=== PATIENT | male | born 1985 | race Caucasian/White ===

== ENCOUNTER 2020-06-03 20:19 | Emergency (ER) | payer OTHER ==
[~2020-06-03] VITALS: Ht 175.3 cm; Wt 101.6 kg
[2020-06-03 20:30] VITALS: BP 109/66
--- NOTE | 2020-06-03 20:30 | NUR ---
TO [facility]
--- NOTE | 2020-06-03 21:00 | NUR ---
SEEN AND EXAMINED BY ÁNGEL WITH ORDERS, CARRIED OUT
--- NOTE | 2020-06-03 22:00 | NUR ---
RESULT BACK AND NOTED BY ERMD AND FOR D/C
[2020-06-03 22:25] VITALS: BP 109/66
--- NOTE | 2020-06-03 22:25 | NUR ---
Patient discharged with v/s stable. Written and verbal after care instructions given and explained. Patient alert, oriented and verbalized understanding of instructions. Ambulatory with steady gait. All questions addressed prior to discharge. ID band removed. Patient advised to follow up with PMD. Rx of NAPROSYN, ALBUTEROL given. Patient educated on indication of medication including possible reaction and side effects. Opportunity to ask questions provided and answered.
== END 2020-06-03 22:25 | disposition home or self-care (01) ==
LOC: MED 20:19
DX: B34.9 Viral infection, unspecified (principal); Z20.828 Contact with and (suspected) exposure to other viral communicable diseases; J45.909 Unspecified asthma, uncomplicated; F17.210 Nicotine dependence, cigarettes, uncomplicated; Z98.890 Other specified postprocedural states
CPT/HCPCS: 71045; 99283

== ENCOUNTER 2020-08-20 21:47 | Emergency (ER) | payer OTHER ==
[~2020-08-20] VITALS: Ht 177.8 cm; Wt 102.1 kg
[2020-08-20 22:11] VITALS: BP 142/84
[2020-08-20] MEDS ORDERED: KETOROLAC 60 MG/2 ML VIAL IM ONE (22:25)
[2020-08-20] MEDS ORDERED: cefTRIAXone 1,000 MG VIAL ONE (23:33)
[2020-08-20 23:39] LABS: BASOPHILS % (AUTO) 0.3 % (0.0-2.0); EOSINOPHILS % (AUTO) 0.8 % (0.0-4.0); HEMATOCRIT 43.8 % (36-52); HEMOGLOBIN 14.8 g/dL (12.0-18.0); LYMPHOCYTES # (AUTO) 1.9 K/uL (2.0-11.5); LYMPHOCYTES % (AUTO) 31.7 % (20.5-51.1); MEAN CORPUSCULAR HEMOGLOBIN 29 pg (27-31); MEAN CORPUSCULAR HGB CONC 34 g/dL (33-37); MEAN CORPUSCULAR VOLUME 86.5 fL (80-94); MONOCYTES # (AUTO) 0.3 K/uL (0.8-1.0); MONOCYTES % (AUTO) 5.4 % (1.7-9.3); NEUTROPHILS # (AUTO) 3.7 K/uL (1.8-7.7); NEUTROPHILS % (AUTO) 61.8 % (42.2-75.2); PLATELET COUNT (AUTO) 203 K/uL (140-450); RED BLOOD CELL COUNT(AUTO) 5.06 MIL/uL (4.20-6.10); RED CELL DISTRIBUTION WIDTH 12.3 % (11.6-13.7)
[2020-08-20 23:52] LABS: ALBUMIN 3.6 g/dL (3.4-5.0); ANION GAP 12.7 (8-16); CARBON DIOXIDE 27.3 mmol/L (21-32); CREATININE 1.1 mg/dL (0.6-1.3); TOTAL BILIRUBIN 0.3 mg/dL (0.0-1.0)
[2020-08-21] MEDS ORDERED: CEPH500C16 PO (00:30)
[2020-08-21] MEDS ORDERED: IBUP-2218 PO (00:30)
[2020-08-21 00:50] VITALS: BP 139/82
== END 2020-08-21 00:50 | disposition home or self-care (01) ==
LOC: MED 21:47
DX: L03.115 Cellulitis of right lower limb (principal); J45.909 Unspecified asthma, uncomplicated
CPT/HCPCS: 36415; 73610; 73630; 80053; 85025; 96365; 96372; 99284; J0696; J1885; J7060